=== PATIENT | female | born 1990 | race Asian ===

== ENCOUNTER 2018-07-17 19:18 | Outpatient (CLI) | payer OTHER | END 2018-07-17 19:34 | disposition short-term general hospital (02) | LOC: AMB 19:18 | DX: O20.0 Threatened abortion (principal); O62.8 Other abnormalities of forces of labor; R10.84 Generalized abdominal pain; Z3A.00 Weeks of gestation of pregnancy not specified | CPT/HCPCS: A0425; A0427 ==

== ENCOUNTER 2018-12-07 11:55 | Emergency (ER) | payer OTHER ==
[~2018-12-07] VITALS: Ht 172.7 cm; Wt 65.8 kg
[2018-12-07 12:06] VITALS: TEMP 97.7
[2018-12-07 15:02] VITALS: BP 128/74
== END 2018-12-07 15:02 | disposition home or self-care (01) ==
LOC: ED 11:55
DX: N72 Inflammatory disease of cervix uteri (principal); N76.0 Acute vaginitis
CPT/HCPCS: 81000; 81025; 86706; 86803; 87077; 87086; 87088; 87186; 87210; 87340; 87490; 87535; 87590; 96372; 99284; J0696

== ENCOUNTER 2018-12-12 01:16 | Emergency (ER) | payer OTHER ==
[~2018-12-12] VITALS: Ht 172.7 cm; Wt 65.8 kg
[2018-12-12 02:53] LABS: PLATELET COUNT 259 K/uL (152-353)
[2018-12-12 02:55] LABS: POTASSIUM 3.3 mmol/L (3.6-5.2)
[2018-12-12 08:31] VITALS: BP 108/64; TEMP 98
== END 2018-12-12 08:31 | disposition home or self-care (01) ==
LOC: ED 01:16
PROVIDERS: Family Medicine
DX: F19.10 Other psychoactive substance abuse, uncomplicated (principal); R94.31 Abnormal electrocardiogram [ECG] [EKG]
CPT/HCPCS: 80053; 80307; 80329; 81000; 85027; 93005; 96360; 96372; 96375; 96376; 99285; J1200; J2060; J2310; J3486

== ENCOUNTER 2019-02-12 04:34 | Emergency (ER) | payer OTHER ==
[~2019-02-12] VITALS: Ht 172.7 cm; Wt 65.8 kg
[2019-02-12 05:20] VITALS: BP 96/56; TEMP 98.6
== END 2019-02-12 05:20 | disposition home or self-care (01) ==
LOC: ED 04:34
DX: K08.89 Other specified disorders of teeth and supporting structures (principal); F17.210 Nicotine dependence, cigarettes, uncomplicated
CPT/HCPCS: 99282; 99283

== ENCOUNTER 2019-03-22 21:26 | Emergency (ER) | payer OTHER ==
[~2019-03-22] VITALS: Ht 170.2 cm; Wt 70.3 kg
[2019-03-22 22:24] VITALS: BP 114/86; TEMP 98.1
== END 2019-03-22 22:24 | disposition home or self-care (01) ==
LOC: ED 21:26
DX: K02.9 Dental caries, unspecified (principal); K01.1 Impacted teeth; F17.210 Nicotine dependence, cigarettes, uncomplicated
CPT/HCPCS: 99282

== ENCOUNTER 2020-10-28 19:12 | Emergency (ER) | payer OTHER ==
[~2020-10-28] VITALS: Ht 170.2 cm; Wt 70.3 kg
[2020-10-28 19:59] LABS: PLATELET COUNT 255 K/uL (152-353)
[2020-10-28 20:17] LABS: POTASSIUM 3.8 mmol/L (3.6-5.2); SODIUM 139 mmol/L (136-145)
[2020-10-28 20:20] LABS: PARTIAL THROMBOPLASTIN TIME 23.1 SECONDS (24.5-33.6)
[2020-10-28 21:25] VITALS: BP 132/78; TEMP 97.9
== END 2020-10-28 21:25 | disposition home or self-care (01) ==
LOC: ED 19:12
PROVIDERS: Emergency Medicine
DX: F19.10 Other psychoactive substance abuse, uncomplicated (principal); N39.0 Urinary tract infection, site not specified; A59.9 Trichomoniasis, unspecified
CPT/HCPCS: 36415; 80053; 80307; 80320; 81000; 81025; 82550; 82553; 84484; 85027; 85379; 85610; 85730; 87088; 93005; 96360; 96365; 96375; 99284; J0696; J2060

== ENCOUNTER 2021-02-28 20:36 | Emergency (ER) | payer OTHER ==
[~2021-02-28] VITALS: Ht 170.2 cm; Wt 72.6 kg
[2021-02-28 21:12] LABS: PLATELET COUNT 281 K/uL (152-353)
[2021-02-28 21:20] LABS: POTASSIUM 2.8 mmol/L (3.6-5.2)
[2021-03-01 02:40] VITALS: BP 104/67; TEMP 97.6
== END 2021-03-01 02:45 | disposition home or self-care (01) ==
LOC: ED 20:36
PROVIDERS: Emergency Medicine Emergency Medical Services
DX: F19.10 Other psychoactive substance abuse, uncomplicated (principal); K29.00 Acute gastritis without bleeding; E87.6 Hypokalemia
CPT/HCPCS: 36415; 80053; 80307; 80320; 81000; 81025; 85027; 96360; 96361; 96375; 96376; 99284; J2405; J2550; Q9963

== ENCOUNTER 2021-03-02 06:12 | Emergency (ER) | payer OTHER ==
[~2021-03-02] VITALS: Ht 170.2 cm; Wt 72.6 kg
[2021-03-02 06:50] LABS: PLATELET COUNT 259 K/uL (152-353)
[2021-03-02 07:06] LABS: POTASSIUM 2.5 mmol/L (3.6-5.2)
[2021-03-02 10:40] VITALS: BP 117/61; TEMP 97.8
== END 2021-03-02 10:40 | disposition home or self-care (01) ==
LOC: ED 06:12
PROVIDERS: Emergency Medicine Emergency Medical Services
DX: R07.89 Other chest pain (principal); K29.70 Gastritis, unspecified, without bleeding; E87.6 Hypokalemia
CPT/HCPCS: 36415; 80053; 81000; 81025; 82150; 83690; 84484; 85027; 85379; 93005; 96360; 96375; 99284; J1885; J2550; Q9963

== ENCOUNTER 2021-06-10 09:17 | Emergency (ER) | payer OTHER ==
[~2021-06-10] VITALS: Ht 170.2 cm; Wt 72.6 kg
[2021-06-10 09:21] VITALS: TEMP 98.5
[2021-06-10 10:05] LABS: PLATELET COUNT 295 K/uL (152-353)
[2021-06-10 10:11] LABS: POTASSIUM 3.5 mmol/L (3.6-5.2)
[2021-06-10 10:15] LABS: PARTIAL THROMBOPLASTIN TIME 23.9 SECONDS (24.5-33.6)
[2021-06-10 10:50] VITALS: BP 128/88
== END 2021-06-10 10:50 | disposition home or self-care (01) ==
LOC: ED 09:17
PROVIDERS: Hospitalist
DX: R07.89 Other chest pain (principal)
CPT/HCPCS: 36415; 80053; 82550; 83880; 84484; 85027; 85379; 85610; 85730; 93005; 99284

== ENCOUNTER 2022-03-02 02:00 | Emergency (ER) | payer OTHER ==
[~2022-03-02] VITALS: Ht 170.2 cm; Wt 72.6 kg
[2022-03-02 02:00] VITALS: TEMP 98.9
[2022-03-02 03:00] LABS: POTASSIUM 3.2 mmol/L (3.6-5.2)
[2022-03-02 03:02] LABS: PLATELET COUNT 234 K/uL (152-353)
[2022-03-02 06:30] VITALS: BP 96/60
== END 2022-03-02 11:42 | disposition home or self-care (01) ==
LOC: ED 02:00
PROVIDERS: Emergency Medicine
DX: F19.10 Other psychoactive substance abuse, uncomplicated (principal)
CPT/HCPCS: 36415; 80053; 80307; 81000; 81025; 85027; 93005; 96360; 96374; 99284; J2060

== ENCOUNTER 2022-04-10 16:37 | Emergency (ER) | payer OTHER ==
[~2022-04-10] VITALS: Ht 172.7 cm; Wt 67.1 kg
[2022-04-10 16:37] VITALS: BP 135/89; TEMP 98.5
[2022-04-10 17:21] LABS: PLATELET COUNT 249 K/uL (152-353)
[2022-04-10 17:27] LABS: POTASSIUM 3.6 mmol/L (3.6-5.2)
== END 2022-04-10 17:30 | disposition left against medical advice (07) ==
LOC: ED 16:37
PROVIDERS: Emergency Medicine Emergency Medical Services
DX: R10.31 Right lower quadrant pain (principal); Z53.29 Procedure and treatment not carried out because of patient's decision for other reasons
CPT/HCPCS: 80048; 80307; 81000; 81025; 85027; 99282

== ENCOUNTER 2022-06-26 22:40 | Emergency (ER) | payer OTHER ==
[~2022-06-26] VITALS: Ht 172.7 cm; Wt 78.9 kg
[2022-06-27 00:45] VITALS: BP 125/80; TEMP 98.6
== END 2022-06-27 00:45 | disposition home or self-care (01) ==
LOC: ED 22:40
PROC: 2W3JX1Z Immobilization of Right Finger using Splint (ICD-10-PCS; principal; 2022-06-26)
DX: S62.616A Displaced fracture of proximal phalanx of right little finger, initial encounter for closed fracture (principal); W18.39XA Other fall on same level, initial encounter; Y92.098 Other place in other non-institutional residence as the place of occurrence of the external cause
CPT/HCPCS: 80307; 81025; 96372; 99283; J1885

== ENCOUNTER 2022-06-29 20:07 | Emergency (ER) | payer OTHER ==
[~2022-06-29] VITALS: Ht 172.7 cm; Wt 83.5 kg
[2022-06-29 20:20] VITALS: BP 123/79; TEMP 98.5
[2022-06-29 21:54] LABS: PLATELET COUNT 256 K/uL (152-353)
[2022-06-29 22:00] LABS: POTASSIUM 3.8 mmol/L (3.6-5.2); SODIUM 141 mmol/L (136-145)
[2022-06-29 22:11] LABS: PARTIAL THROMBOPLASTIN TIME 24.5 SECONDS (24.5-33.6)
== END 2022-06-29 23:30 | disposition home or self-care (01) ==
LOC: ED 20:07
PROVIDERS: Emergency Medicine
DX: M70.21 Olecranon bursitis, right elbow (principal); S62.646D Nondisplaced fracture of proximal phalanx of right little finger, subsequent encounter for fracture with routine healing; M62.82 Rhabdomyolysis; W18.39XD Other fall on same level, subsequent encounter; Y92.098 Other place in other non-institutional residence as the place of occurrence of the external cause
CPT/HCPCS: 36415; 80053; 82550; 84484; 85027; 85379; 85610; 85730; 99283